=== PATIENT | female | born 1955 | race Caucasian/White ===

== ENCOUNTER → 2016-08-05 | Outpatient (REF) | payer BC ==
[2016-08-05 13:28] LABS: FREE T4 1.04 NG/DL (0.76-1.46); TOTAL PROTEIN 8.1 GM/DL (6.4-8.2)
[2016-08-05 14:41] LABS: VITAMIN B12 LEVEL 645 PG/ML
[2016-08-05 14:42] LABS: FOLATE > 24.0 NG/ML
[2016-08-06 14:12] LABS: SJOGREN'S ANTI SS-A <0.2 AI (0.0-0.9); SJOGREN'S ANTI SS-B <0.2 AI (0.0-0.9)
[2016-08-08 14:13] LABS: VITAMIN E LEVEL 15.9 mg/L (5.3-16.8)
[2016-08-09 10:49] LABS: ALBUMIN 5.11 GM/DL (3.29-5.55); ALBUMIN % 63.1 % (55.8-66.1); GAMMA GLOBULIN % 13.3 % (11.1-18.8)
== END ==
LOC: M LABNEURO 12:23
PROVIDERS: ATTEND Psychiatry & Neurology Neurology
DX: Z13.1 Encounter for screening for diabetes mellitus (principal); R20.0 Anesthesia of skin

== ENCOUNTER → 2018-11-22 | Outpatient (REF) | payer OTHER | LOC: M LAB LCGH 14:51 | PROVIDERS: ATTEND Physician Assistant | DX: D48.5 Neoplasm of uncertain behavior of skin (principal) ==